=== PATIENT | female | born 1950 | race Caucasian/White ===

== ENCOUNTER → 2018-01-03 | Outpatient (CLI) | payer OTHER | END | disposition home or self-care (01) | LOC: CVU 09:46 | PROVIDERS: ATTEND Internal Medicine Cardiovascular Disease | DX: S15.099S Other specified injury of unspecified carotid artery, sequela (principal); E78.5 Hyperlipidemia, unspecified; R09.89 Other specified symptoms and signs involving the circulatory and respiratory systems; I35.1 Nonrheumatic aortic (valve) insufficiency; X58.XXXS Exposure to other specified factors, sequela | CPT/HCPCS: 93306; 93880 ==